=== PATIENT | male | born 1950 | race Caucasian/White ===

== ENCOUNTER → 2019-06-04 | Outpatient (CLI) | payer OTHER ==
--- NOTE | 2019-06-04 18:32 | REP ---
HISTORY: Right side bruit. Echogenic material is seen along the carotid arterial lundberg, some of which casts an acoustic shadow secondary to calcific deposition. Right Left CCA systolic 124.0 cm/s 115.0 cm/s CCA diastolic 24.8 cm/s 20.4 cm/s ICA systolic 91.0 cm/s 110.0 cm/s ICA diastolic 30.6 cm/s 34.2 cm/s ICA/CCA ratio 0.73 0.97 Analysis of the spectral waveforms shows no significant spectral broadening. There is antegrade flow seen in both vertebral arteries. IMPRESSION: According to the NASCET consensus criteria, there is less than 50% stenosis in the internal carotid artery bilaterally. This is secondary to both calcified and noncalcified atheromatous plaque formation. Electronically Signed by César Kessler DO 06/04/2019 07:35 P
== END ==
LOC: M RAD 13:51
PROVIDERS: ATTEND Internal Medicine
DX: I65.23 Occlusion and stenosis of bilateral carotid arteries (principal)

== ENCOUNTER → 2021-09-13 | Outpatient (CLI) | payer OTHER ==
[2021-09-13 11:22] LABS: APPEARANCE, URINE CLEAR (CLEAR); BACTERIA, URINE AUTO NEGATIVE (NEGATIVE); BILIRUBIN, URINE AUTO NEGATIVE (NEGATIVE); BLOOD, URINE BLOOD NEGATIVE (NEGATIVE); COLOR, URINE YELLOW (YELLOW); GLUCOSE, URINE (UA) AUTO NEGATIVE (NEGATIVE); KETONE, URINE AUTO NEGATIVE (NEGATIVE); LEUKOCYTE ESTERASE, URINE AUTO NEGATIVE (NEGATIVE); NITRITE, URINE AUTO NEGATIVE (NEGATIVE); PROTEIN, URINE AUTO NEGATIVE (NEGATIVE); RBC, URINE AUTO 0 /HPF (0-3); SPECIFIC GRAVITY URINE AUTO 1.005 (1.002-1.035); SQUAMOUS EPITHELIAL CELL UR AU 0 /HPF (0-6); UROBILINOGEN, URINE AUTO 0.2 mg/dL (0.0-2.0); WBC, URINE AUTO 1 /HPF (0-3)
[2021-09-13 11:25] LABS: HEMATOCRIT 43.3 % (42.0-52.0); HEMOGLOBIN 15.3 g/dl (13.5-17.5); MEAN CORPUSCULAR HEMOGLOBIN 32.3 pg (27.0-33.0); MEAN CORPUSCULAR HGB CONC 35.3 g/dl (32.0-36.5); MEAN CORPUSCULAR VOLUME 91.5 fl (80.0-96.0); PLATELET COUNT, AUTOMATED 188 10^3/uL (150-450); RED BLOOD COUNT 4.73 10^6/uL (4.30-6.10); WHITE BLOOD COUNT 6.2 10^3/uL (4.0-10.0)
[2021-09-13 12:24] LABS: CREATININE, URINE 51.1 MG/DL; MALB URINE SIEMENS 8.8 MG/L; MAU/CREAT RATIO 17.2 MCG/MG (0.0-30.0)
[2021-09-13 12:54] LABS: ALBUMIN 4.2 GM/DL (3.2-5.2); ALT/SGPT 61 U/L (12-78); BLOOD UREA NITROGEN 18 MG/DL (7-18); CALCIUM LEVEL 9.4 MG/DL (8.8-10.2); CARBON DIOXIDE LEVEL 26 MEQ/L (21-32); CHLORIDE LEVEL 109 MEQ/L (98-107); CHOLESTEROL LEVEL 124 MG/DL (<200); CHOLESTEROL RISK RATIO 2.695 (<5); CREATININE FOR GFR 1.04 MG/DL (0.70-1.30); GLOMERULAR FILTRATION RATE > 60.0 (>42); GLUCOSE, FASTING 110 MG/DL (70-100); HDL CHOLESTEROL 46 MG/DL (>40); LDL CHOLESTEROL 55 MG/DL (<100); NON-HDL-C 78 MG/DL; SODIUM LEVEL 141 MEQ/L (136-145); TOTAL PROTEIN 7.4 GM/DL (6.4-8.2); TRIGLYCERIDES LEVEL 116 MG/DL (<150)
[2021-09-13 13:53] LABS: HEMOGLOBIN A1c 5.9 %
== END ==
LOC: M LAB 09:34
PROVIDERS: ATTEND Nurse Practitioner Family
DX: K21.9 Gastro-esophageal reflux disease without esophagitis (principal); E78.5 Hyperlipidemia, unspecified; R73.03 Prediabetes